=== PATIENT | female | born 1960 | race Caucasian/White ===

== ENCOUNTER 2017-03-01 13:28 | Emergency (ER) | payer OTHER ==
[~2017-03-01] VITALS: Ht 157.5 cm; Wt 63.5 kg
[~2017-03-01 13:28] MED LIST: ALBU90OI INH; AMOCLA875 PO; Bactrim Ds Tab1 EACH PO; CEPH500 PO; CYCL10 PO; HYDMOR2 PO; HYDR1TAB94 PO; LEVFLO500 PO; LEVSOD50 PO; METCAR500 PO; METPRE4DP PO; Mucinex1200 MG PO; Norco 10-325 T1 EACH PO; Norco 5-325 Ta1 EACH PO; OXYACEL PO; OXYC1TAB11 PO; PRODEXEL PO; Pyridium100 MG PO; RXCYCL10 PO; RXTRAM50 PO; TRAM50 PO; Zithromax250 MG PO; [UNRECOGNIZED DRUG - OTHER] PO
[2017-03-01] MEDS ORDERED: FLUT1DIS5 INH (14:49)
[2017-03-01] MEDS ORDERED: Q-Tussin100 MG/5 M PO (14:49)
[2017-03-01] MEDS ORDERED: Zithromax250 MG PO (14:49)
[2017-12-09] MEDS ORDERED: Keflex500 MG PO (13:31)
[2017-12-09] MEDS ORDERED: Norco 5-325 Ta1 EACH PO (13:31)
== END 2017-03-01 14:58 | disposition home or self-care (01) ==
LOC: ER 13:28
DX: J44.1 Chronic obstructive pulmonary disease with (acute) exacerbation (principal); Z88.5 Allergy status to narcotic agent; Z88.8 Allergy status to other drugs, medicaments and biological substances; E11.9 Type 2 diabetes mellitus without complications; Z87.891 Personal history of nicotine dependence
CPT/HCPCS: 71046; 96372; 99283; J1885

== ENCOUNTER 2017-05-03 19:02 | Emergency (ER) | payer OTHER ==
[~2017-05-03] VITALS: Ht 157.5 cm; Wt 61.2 kg
[~2017-05-03 19:02] MED LIST changes: +FLUT1DIS5 INH; +Q-Tussin100 MG/5 M PO
[2017-05-03 19:46] LABS: Source, Urine Clean Catch
[2017-05-03 19:49] LABS: Appearance, Urine Hazy (Clear); Bilirubin, Urine Neg (Neg); Blood, Urine 3+ (Neg); Color, Urine Yellow (P-Yellow); Glucose Qualitative, Urine Neg (Neg); Ketones, Urine Neg (Neg); Leukocyte Esterase, Urine 3+ (Neg); Nitrite, Urine Neg (Neg); Protein, Urine 2+ (Neg); Urobilinogen, Urine 2+ (Normal)
[2017-05-03 19:49] LABS: BASOPHILS ABSOLUTE AUTO 0.02 K/mm3 (0.00-0.23); BASOPHILS PERCENT AUTO 0 % (0-2); EOSINOPHILS ABSOLUTE AUTO 0.19 K/mm3 (0.00-0.68); EOSINOPHILS PERCENT AUTO 3 % (0-6); Hematocrit 31.9 % (33.0-51.0); Hemoglobin 10.4 g/dL (11.5-16.0); IMMATURE GRAN ABSOLUTE AUTO 0.02 K/mm3 (0.00-0.10); IMMATURE GRAN PERCENT AUTO 0 % (0-1); LYMPHOCYTES PERCENT AUTO 14 % (21-46); MONOCYTES ABSOLUTE AUTO 0.67 K/mm3 (0.16-1.47); MONOCYTES PERCENT AUTO 12 % (4-13); Mean Corpuscular HGB 29.1 pg (26.0-34.0); Mean Corpuscular HGB Conc 32.6 g/dL (31.5-36.5); Mean Corpuscular Volume 89 fL (80-100); Mean Platelet Volume 10.6 fL (9.1-12.4); NEUTROPHILS ABSOLUTE AUTO 3.86 K/mm3 (1.96-9.15); NEUTROPHILS PERCENT AUTO 69 % (41-73); Platelet Count 256 K/mm3 (150-400); RDW Coefficient Variation 12.9 % (11.7-14.2); RDW Standard Deviation 42.7 fL (35.1-46.3); Red Blood Cell Count 3.58 M/mm3 (3.80-5.20); White Blood Cell Count 5.56 K/mm3 (4.00-11.30)
[2017-05-03 20:04] LABS: Bacteria Mod /hpf; Squamous Epithelial Cells Rare /hpf (Few); White Blood Cells, Urine TNTC /hpf (0-5)
[2017-05-03 20:12] LABS: Albumin, Blood 3.2 g/dL (3.4-5.0); Albumin/Globulin Ratio 0.7 (0.8-1.8); Bilirubin, Total 0.4 mg/dL (0.1-1.0); Bun/Creatinine Ratio 22.2 (12.0-20.0); Calcium, Blood 9.4 mg/dL (8.5-10.1); Creatinine, Blood 1.26 mg/dL (0.40-1.00); Globulin, Blood 4.5 g/dL (2.2-4.0); Potassium, Blood 3.4 mmol/L (3.5-5.5); Total Protein, Blood 7.7 g/dL (6.4-8.2)
[2017-05-03] MEDS ORDERED: CEFP200 PO (20:47)
[2017-05-03] MEDS ORDERED: Norco 5-325 Ta1 EACH PO (20:47)
[2017-12-09] MEDS ORDERED: Keflex500 MG PO (13:31)
[2017-12-09] MEDS ORDERED: Norco 5-325 Ta1 EACH PO (13:31)
== END 2017-05-03 21:10 | disposition home or self-care (01) ==
LOC: ER 19:02
PROVIDERS: Emergency Medicine
DX: N12 Tubulo-interstitial nephritis, not specified as acute or chronic (principal); N28.9 Disorder of kidney and ureter, unspecified; E11.9 Type 2 diabetes mellitus without complications; R79.89 Other specified abnormal findings of blood chemistry; J45.909 Unspecified asthma, uncomplicated; E03.9 Hypothyroidism, unspecified; Z87.891 Personal history of nicotine dependence
CPT/HCPCS: 36415; 71046; 80053; 81001; 83690; 85025; 87077; 87086; 87186; 93005; 93010; 99283

== ENCOUNTER 2017-05-07 18:31 | Emergency (ER) | payer OTHER ==
[~2017-05-07] VITALS: Ht 154.9 cm; Wt 49.0 kg
[~2017-05-07 18:31] MED LIST changes: +CEFP200 PO
[2017-05-07 19:29] LABS: BASOPHILS ABSOLUTE AUTO 0.05 K/mm3 (0.00-0.23); BASOPHILS PERCENT AUTO 1 % (0-2); EOSINOPHILS ABSOLUTE AUTO 0.18 K/mm3 (0.00-0.68); EOSINOPHILS PERCENT AUTO 2 % (0-6); Hematocrit 35.5 % (33.0-51.0); Hemoglobin 11.3 g/dL (11.5-16.0); Mean Corpuscular HGB 28.8 pg (26.0-34.0); Mean Corpuscular HGB Conc 31.8 g/dL (31.5-36.5); Mean Corpuscular Volume 91 fL (80-100); Mean Platelet Volume 10.5 fL (9.1-12.4); Platelet Count 298 K/mm3 (150-400); RDW Coefficient Variation 13.5 % (11.7-14.2); RDW Standard Deviation 44.9 fL (35.1-46.3); Red Blood Cell Count 3.92 M/mm3 (3.80-5.20); White Blood Cell Count 8.47 K/mm3 (4.00-11.30)
[2017-05-07 19:42] LABS: IMMATURE GRAN ABSOLUTE AUTO 0.03 K/mm3 (0.00-0.10); IMMATURE GRAN PERCENT AUTO 0 % (0-1); LYMPHOCYTES ABSOLUTE AUTO 4.79 K/mm3 (0.84-5.20); LYMPHOCYTES PERCENT AUTO 57 % (21-46); MONOCYTES ABSOLUTE AUTO 0.58 K/mm3 (0.16-1.47); MONOCYTES PERCENT AUTO 7 % (4-13); NEUTROPHILS ABSOLUTE AUTO 2.84 K/mm3 (1.96-9.15); NEUTROPHILS PERCENT AUTO 34 % (41-73)
[2017-05-07 19:49] LABS: Alanine Aminotransfer (ALT/SGP 882 U/L (12-78); Albumin, Blood 2.9 g/dL (3.4-5.0); Albumin/Globulin Ratio 0.7 (0.8-1.8); Alk Phos 332 U/L (50-136); Anion Gap 9 mmol/L (6-16); Aspartate Aminotrans (AST/SGOT 580 U/L (12-37); Bilirubin, Total 0.4 mg/dL (0.1-1.0); Blood Urea Nitrogen 14 mg/dL (8-24); Bun/Creatinine Ratio 16.2 (12.0-20.0); CO2, Blood 23 mmol/L (21-32); Calcium, Blood 8.4 mg/dL (8.5-10.1); Chloride, Blood 108 mmol/L (98-108); Creatinine, Blood 0.87 mg/dL (0.40-1.00); Globulin, Blood 4.4 g/dL (2.2-4.0); Glomerular Filtration Rate >60 (60-); Glucose, Blood 98 mg/dL (70-99); Potassium, Blood 3.5 mmol/L (3.5-5.5); Sodium, Blood 140 mmol/L (136-145); Total Protein, Blood 7.3 g/dL (6.4-8.2)
[2017-05-07 20:50] LABS: Source, Urine Clean Catch
[2017-05-07 20:53] LABS: Appearance, Urine Hazy (Clear); Bilirubin, Urine Neg (Neg); Blood, Urine 2+ (Neg); Color, Urine Yellow (P-Yellow); Glucose Qualitative, Urine Neg (Neg); Ketones, Urine Neg (Neg); Leukocyte Esterase, Urine 3+ (Neg); Nitrite, Urine Pos (Neg); Protein, Urine 1+ (Neg); Specific Gravity, Urine 1.015 (1.003-1.022); Urobilinogen, Urine 1+ (Normal)
[2017-05-07 21:06] LABS: Bacteria Many /hpf; White Blood Cells, Urine TNTC /hpf (0-5)
[2017-05-07 21:07] LABS: Red Blood Cells, Urine 0-2 /hpf (0-2); Squamous Epithelial Cells Rare /hpf (Few)
[2017-12-09] MEDS ORDERED: Keflex500 MG PO (13:31)
[2017-12-09] MEDS ORDERED: Norco 5-325 Ta1 EACH PO (13:31)
== END 2017-05-07 22:00 | disposition left against medical advice (07) ==
LOC: ER 18:31
PROVIDERS: Emergency Medicine
DX: Z53.21 Procedure and treatment not carried out due to patient leaving prior to being seen by health care provider (principal)
CPT/HCPCS: 36415; 71046; 80053; 81001; 85025; 87077; 87086; 87186; 99283

== ENCOUNTER 2017-08-02 13:20 | Emergency (ER) | payer OTHER ==
[~2017-08-02] VITALS: Ht 157.5 cm; Wt 56.7 kg
[2017-08-02] MEDS ORDERED: Keflex500 MG PO (14:01)
== END 2017-08-02 14:11 | disposition home or self-care (01) ==
LOC: ER 13:20
DX: S90.31XA Contusion of right foot, initial encounter (principal); T22.031A Burn of unspecified degree of right upper arm, initial encounter; T31.0 Burns involving less than 10% of body surface; W17.2XXA Fall into hole, initial encounter; Z88.5 Allergy status to narcotic agent; Z88.8 Allergy status to other drugs, medicaments and biological substances; Z79.899 Other long term (current) drug therapy; J45.909 Unspecified asthma, uncomplicated; E11.9 Type 2 diabetes mellitus without complications; Z87.891 Personal history of nicotine dependence
CPT/HCPCS: 73630; 99283

== ENCOUNTER 2017-08-31 22:32 | Emergency (ER) | payer OTHER ==
[~2017-08-31] VITALS: Ht 157.5 cm; Wt 59.0 kg
[~2017-08-31 22:32] MED LIST changes: +Keflex500 MG PO
[2017-09-01] MEDS ORDERED: SERT25 (01:57)
[2017-09-01] MEDS ORDERED: Zovirax800 MG PO (02:43)
[2017-09-01] MEDS ORDERED: Percocet 10-321 EACH PO (02:43)
== END 2017-09-01 03:03 | disposition home or self-care (01) ==
LOC: ER 22:32
DX: B02.9 Zoster without complications (principal); E11.9 Type 2 diabetes mellitus without complications; Z88.5 Allergy status to narcotic agent; Z88.8 Allergy status to other drugs, medicaments and biological substances; Z79.899 Other long term (current) drug therapy; Z87.891 Personal history of nicotine dependence
CPT/HCPCS: 99282

== ENCOUNTER 2018-03-16 10:04 | Emergency (ER) | payer SELFPAY ==
[~2018-03-16] VITALS: Ht 157.5 cm; Wt 59.0 kg
[~2018-03-16 10:04] MED LIST changes: +Percocet 10-321 EACH PO; +SERT25; +Zovirax800 MG PO
== END 2018-03-16 11:09 | disposition home or self-care (01) ==
LOC: ER 10:04
DX: S93.402A Sprain of unspecified ligament of left ankle, initial encounter (principal); E11.9 Type 2 diabetes mellitus without complications; Z88.5 Allergy status to narcotic agent; Z88.8 Allergy status to other drugs, medicaments and biological substances; Z87.891 Personal history of nicotine dependence; W17.89XA Other fall from one level to another, initial encounter
CPT/HCPCS: 73610; 99283-25

== ENCOUNTER 2018-05-01 14:27 | Emergency (ER) | payer MEDICAID ==
[~2018-05-01] VITALS: Ht 157.5 cm; Wt 61.2 kg
[2018-05-01] MEDS ORDERED: Cyclobenzaprine5 MG PO (15:20)
[2018-05-01] MEDS ORDERED: Voltaren100 GM TOP (15:20)
== END 2018-05-01 15:29 | disposition home or self-care (01) ==
LOC: ER 14:27
DX: S16.1XXA Strain of muscle, fascia and tendon at neck level, initial encounter (principal); E11.9 Type 2 diabetes mellitus without complications; J45.909 Unspecified asthma, uncomplicated; Z88.5 Allergy status to narcotic agent; Z88.8 Allergy status to other drugs, medicaments and biological substances; Z79.899 Other long term (current) drug therapy; Z87.891 Personal history of nicotine dependence; X58.XXXA Exposure to other specified factors, initial encounter
CPT/HCPCS: 99282

== ENCOUNTER 2018-09-08 14:39 | Emergency (ER) | payer OTHER ==
[~2018-09-08] VITALS: Ht 157.5 cm; Wt 61.2 kg
[~2018-09-08 14:39] MED LIST changes: +Cyclobenzaprine5 MG PO; +Voltaren100 GM TOP
[2018-09-08] MEDS ORDERED: KETO10 PO (15:38)
== END 2018-09-08 15:43 | disposition home or self-care (01) ==
LOC: ER 14:39
DX: S46.011A Strain of muscle(s) and tendon(s) of the rotator cuff of right shoulder, initial encounter (principal); V49.9XXA Car occupant (driver) (passenger) injured in unspecified traffic accident, initial encounter; Z88.5 Allergy status to narcotic agent; Z88.8 Allergy status to other drugs, medicaments and biological substances; E11.9 Type 2 diabetes mellitus without complications; J45.909 Unspecified asthma, uncomplicated; Z87.891 Personal history of nicotine dependence
CPT/HCPCS: 73030; 99284-25

== ENCOUNTER 2019-03-03 13:43 | Emergency (ER) | payer OTHER ==
[~2019-03-03] VITALS: Ht 157.5 cm; Wt 60.8 kg
[~2019-03-03 13:43] MED LIST changes: +KETO10 PO
[2019-03-03] MEDS ORDERED: CYCL10 PO (15:15)
== END 2019-03-03 15:21 | disposition home or self-care (01) ==
LOC: ER 13:43
DX: S09.90XA Unspecified injury of head, initial encounter (principal); S80.01XA Contusion of right knee, initial encounter; S40.012A Contusion of left shoulder, initial encounter; E11.319 Type 2 diabetes mellitus with unspecified diabetic retinopathy without macular edema; Z88.5 Allergy status to narcotic agent; Z88.8 Allergy status to other drugs, medicaments and biological substances; Z87.891 Personal history of nicotine dependence; W01.0XXA Fall on same level from slipping, tripping and stumbling without subsequent striking against object, initial encounter
CPT/HCPCS: 73030; 73562-RT; 99283-25

== ENCOUNTER 2019-03-18 22:14 | Observation (INO) | payer OTHER ==
[~2019-03-18] VITALS: Ht 157.5 cm; Wt 58.8 kg
[2019-03-18] MEDS ORDERED: AMOCLA875 PO (22:42)
[2019-03-19 01:14] LABS: BASOPHILS ABSOLUTE AUTO 0.04 K/mm3 (0.00-0.23); BASOPHILS PERCENT AUTO 0 % (0-2); EOSINOPHILS ABSOLUTE AUTO 0.08 K/mm3 (0.00-0.68); EOSINOPHILS PERCENT AUTO 1 % (0-6); Hematocrit 38.7 % (33.0-51.0); Hemoglobin 12.2 g/dL (11.5-16.0); IMMATURE GRAN ABSOLUTE AUTO 0.03 K/mm3 (0.00-0.10); IMMATURE GRAN PERCENT AUTO 0 % (0-1); LYMPHOCYTES ABSOLUTE AUTO 2.93 K/mm3 (0.84-5.20); LYMPHOCYTES PERCENT AUTO 33 % (21-46); MONOCYTES ABSOLUTE AUTO 0.74 K/mm3 (0.16-1.47); MONOCYTES PERCENT AUTO 8 % (4-13); Mean Corpuscular HGB 28.7 pg (26.0-34.0); Mean Corpuscular HGB Conc 31.5 g/dL (31.5-36.5); Mean Corpuscular Volume 91 fL (80-100); NEUTROPHILS ABSOLUTE AUTO 5.12 K/mm3 (1.96-9.15); NEUTROPHILS PERCENT AUTO 57 % (41-73); Platelet Count 362 K/mm3 (150-400); RDW Coefficient Variation 13.5 % (11.7-14.2); Red Blood Cell Count 4.25 M/mm3 (3.80-5.20); White Blood Cell Count 8.94 K/mm3 (4.00-11.30)
[2019-03-19 01:31] LABS: Alanine Aminotransfer (ALT/SGP 21 U/L (12-78); Albumin, Blood 4.1 g/dL (3.4-5.0); Albumin/Globulin Ratio 0.9 (0.8-1.8); Alk Phos 108 U/L (50-136); Anion Gap 6 mmol/L (6-16); Aspartate Aminotrans (AST/SGOT 22 U/L (12-37); Bilirubin, Total 0.2 mg/dL (0.1-1.0); Blood Urea Nitrogen 25 mg/dL (8-24); Bun/Creatinine Ratio 32.4 (12.0-20.0); CO2, Blood 26 mmol/L (21-32); Chloride, Blood 109 mmol/L (98-108); Creatinine, Blood 0.77 mg/dL (0.40-1.00); Globulin, Blood 4.4 g/dL (2.2-4.0); Glomerular Filtration Rate >60 (60-); Glucose, Blood 85 mg/dL (70-99); Potassium, Blood 3.5 mmol/L (3.5-5.5); Sodium, Blood 141 mmol/L (136-145); Total Protein, Blood 8.5 g/dL (6.4-8.2)
--- NOTE | 2019-03-19 03:25 | NUR ---
0153 REPORT RECIEVED FROM ER NURSE CHIQUI. 0201 PT TO UNIT VIA WHEELCHAIR. TRANSFERRED TO UNIT BED BY AMBULATION. STEADY GAIT. INTRODUCTED TO STAFF AND ORIENTED TO ROOM. PT A/O X4. REPORTS OF PAIN IN R HAND MIDDLE FINGER. PICTURE TAKEN OF FINGER. SEE IN PT FOLDER. MEDICATED WITH FENTNYL IV. WILL CONTINUE TO MONITOR.
[2019-03-19 04:42] LABS: Hematocrit 35.1 % (33.0-51.0); Hemoglobin 11.2 g/dL (11.5-16.0); Mean Corpuscular HGB Conc 31.9 g/dL (31.5-36.5); Mean Corpuscular Volume 91 fL (80-100); Mean Platelet Volume 10.1 fL (9.1-12.4); Platelet Count 334 K/mm3 (150-400); RDW Coefficient Variation 13.5 % (11.7-14.2); Red Blood Cell Count 3.86 M/mm3 (3.80-5.20); White Blood Cell Count 7.85 K/mm3 (4.00-11.30)
[2019-03-19 05:00] LABS: Alanine Aminotransfer (ALT/SGP 20 U/L (12-78); Albumin, Blood 3.6 g/dL (3.4-5.0); Albumin/Globulin Ratio 0.9 (0.8-1.8); Alk Phos 97 U/L (50-136); Anion Gap 8 mmol/L (6-16); Aspartate Aminotrans (AST/SGOT 25 U/L (12-37); Bilirubin, Total 0.4 mg/dL (0.1-1.0); Blood Urea Nitrogen 22 mg/dL (8-24); Bun/Creatinine Ratio 27.6 (12.0-20.0); CO2, Blood 25 mmol/L (21-32); Calcium, Blood 8.7 mg/dL (8.5-10.1); Chloride, Blood 109 mmol/L (98-108); Globulin, Blood 3.8 g/dL (2.2-4.0); Glomerular Filtration Rate >60 (60-); Glucose, Blood 97 mg/dL (70-99); Potassium, Blood 3.6 mmol/L (3.5-5.5); Sodium, Blood 142 mmol/L (136-145); Total Protein, Blood 7.4 g/dL (6.4-8.2)
--- NOTE | 2019-03-19 07:26 | NUR ---
RIGGER APPRENTICE SUMMARY PT A/O X4. INDEPENDENT IN ROOM. COMPLAINS OF PAIN IN R HAND MIDDLE DIGIT. MEDICATED FOR PAIN PER EMAR. SLEPT WELL THROUGOUT THE NIGHT. NO ACUTE CHANGES.
--- NOTE | 2019-03-19 18:44 | NUR ---
SHIFT SUMMARY PT IS STABLE. PT HAS REQUESTED PAIN MEDICATION X2. PT WAS UNABLE TO TOLRATE MRI SCHDULED FOR THIS SHIFT AND SCAN IS BEING OREDER FOR TOMORROW [id number]. PT HAS TOLORATED FOOD WELL AND IS INDEPENTENT IN THE ROOM. DR. TELLEZ WAS CONSULTED AND ROUND THIS SHIFT ON PT. CALL LIGHT IS WITH IN REACH AND WILL COUNTINUE TO MONITOR AND REPORT TO ONCOMING SHIFT.
--- NOTE | 2019-03-20 04:37 | NUR ---
SOCIAL MEDIA DEVELOPER SUMMARY NO ACUTE CHANGES THIS SHIFT. PT AAOX4 AND INDEPENDENT IN ROOM. CONTINUES TO HAVE PAIN IN R MIDDLE FINGER, MEDICATED WITH FENTANYL 25 MCG AND TORADOL 15 MG X1. PT DENIES ANY OTHER CONCERNS. VSS, WILL CONTINUE TO MONITOR.
--- NOTE | 2019-03-20 17:27 | NUR ---
SHIFT SUMMARY PT STABLE WITH NO ACUTE CHANGES. PT HAD MRI PERFORRMED THIS SHIFT. PT WAS MEDICATED X2 FOR PAIN RELIEF. PT TOLRATED FOOD WELL. PT IS INDEPENDENT IN ROOM AND HAS CALL LIGHT WITH REACH WILL COUNTINUE TO MONITOR AND REPORT TO ONCOMING SHIFT. DR UGARTE NOFIIED THAT MRI IMPRESSION WAS COMPLETE. DR UGARTE INSTRUCTED ME TO CALL DR. TALAVERA, CALL PLACED TO THROUGH WAITING FOR RETURN CALL.
[2019-03-21 04:55] LABS: BASOPHILS ABSOLUTE AUTO 0.05 K/mm3 (0.00-0.23); BASOPHILS PERCENT AUTO 1 % (0-2); EOSINOPHILS PERCENT AUTO 1 % (0-6); Hemoglobin 11.8 g/dL (11.5-16.0); IMMATURE GRAN ABSOLUTE AUTO 0.01 K/mm3 (0.00-0.10); IMMATURE GRAN PERCENT AUTO 0 % (0-1); LYMPHOCYTES ABSOLUTE AUTO 2.46 K/mm3 (0.84-5.20); LYMPHOCYTES PERCENT AUTO 30 % (21-46); MONOCYTES ABSOLUTE AUTO 0.98 K/mm3 (0.16-1.47); MONOCYTES PERCENT AUTO 12 % (4-13); Mean Corpuscular HGB 29.3 pg (26.0-34.0); Mean Corpuscular HGB Conc 31.9 g/dL (31.5-36.5); Mean Corpuscular Volume 92 fL (80-100); Mean Platelet Volume 10.5 fL (9.1-12.4); NEUTROPHILS ABSOLUTE AUTO 4.55 K/mm3 (1.96-9.15); NEUTROPHILS PERCENT AUTO 56 % (41-73); Platelet Count 343 K/mm3 (150-400); RDW Coefficient Variation 13.3 % (11.7-14.2); RDW Standard Deviation 45.6 fL (35.1-46.3); Red Blood Cell Count 4.03 M/mm3 (3.80-5.20); White Blood Cell Count 8.15 K/mm3 (4.00-11.30)
--- NOTE | 2019-03-21 04:55 | NUR ---
CARD HAND SUMMARY PT AAOX4 AND INDEPENDENT. DR TALAVERA IN TO SEE PT AT START OF SHIFT. DR TALAVERA PLANNING ON DOING PARTIAL AMPUTATION OF R MIDDLE FINGER LATER THIS MORNING. PT EMOTIONAL AFTER FINDING OUT. PAIN HAS BEEN BETTER MANAGED TONIGHT, ONLY TREATED WITH FENTANYL X1. PT HAS BEEN NPO SINCE MIDNIGHT ASIDE FROM WATER. VSS, WILL CONTINUE TO MONITOR.
[2019-03-21 05:10] LABS: Anion Gap 6 mmol/L (6-16); Blood Urea Nitrogen 31 mg/dL (8-24); Bun/Creatinine Ratio 34.8 (12.0-20.0); CO2, Blood 28 mmol/L (21-32); Calcium, Blood 9.1 mg/dL (8.5-10.1); Chloride, Blood 108 mmol/L (98-108); Creatinine, Blood 0.89 mg/dL (0.40-1.00); Glomerular Filtration Rate >60 (60-); Glucose, Blood 110 mg/dL (70-99); Potassium, Blood 3.3 mmol/L (3.5-5.5); Sodium, Blood 142 mmol/L (136-145)
--- NOTE | 2019-03-21 12:46 | NUR ---
PATIENT WAS JUST PICKED UP AND TAKEN DOWN TO THE OR FOR SURGERY.
--- NOTE | 2019-03-21 12:59 | NUR ---
BROUGHT TO [facility] IV STARTED IN LEFT HAND 20 CALIXTO. Patient confirms NPO status and agrees with scheduled surgery. VSS
--- NOTE | 2019-03-21 15:39 | NUR ---
PATIENT RETURNED FROM THE PACU AT APPROX 1520. PATIENT TRANSFERED SELF FROM STRETCHER TO HOSPITAL BED. VITALS CHECKED. PATIENT ASKED TO EAT AND TOOK DOWN QUITE A BIT OF FOOD THAT HER FRIENDS HAD LEFT. CALLED DOWN TO O.R. TO ASK IF LIDOCAINE WAS USED IT WAS NOT MARKED OF PATIENTS EMAR. THEY SAID IT WAS NOT. WILL CHART SO.
--- NOTE | 2019-03-21 16:48 | NUR ---
SHIFT SUMMARY THE PATIENT RETURNED FROM SURGERY MUCH MORE CHEERFUL AND PLEASANT THAN SHE LEFT. SHE DENIES PAIN AND DISCOMFORT AND ATE A LARGE HAMBURGER BROUGHT IN BY A FRIEND. BP HAS BEEN ELEVATED, IT APPEARS TO BE HER BASELINE, ALL OTHER VITALS STABLE AND WNL. SURGICAL DRESSING TO R HAND CDI. PATIENT INDEPENDENT IN ROOM, CALLS FOR STAFF ASSIST NEEDED. WILL CONTINUE TO MONITOR AND PROVIDE CARE NEEDED.
--- NOTE | 2019-03-21 18:35 | NUR ---
PATIENT REQUESTED THAT WE DISCONTINUE THE BLOOD SUGAR CHECKS, THAT HER A1C FROM HER PCP's OFFICE HAVE BEEN GREAT AND SHE NO LONGER CHECKS HER SUGARS AT HOME. HER HIGHEST CHEM BG SINCE ADMIT HAS ONLY BEEN IN THE 130's; GIANFRANCO IT WAS ONLY 113 AFTER SHE ATE A HUGE HAMBURGER. I PLACED A NOTE ON THE PATIENTS WHITE BOARD IN HOPES THE MD WILL SEE IT ON HIS/HER ROUNDS IN THE AM.
--- NOTE | 2019-03-21 22:39 | NUR ---
PT IS PLEASANT AND COOPERATIVE WITH CARE. CHATTING WITH VISITOR, PAUSED DURING REPORT. TREATED FOR PAIN IN HAND PER EMAR TO GOOD EFFECT. PT IS PRESENTLY SLEEPING AND APPEARS IN NO ACUTE DISTRESS. VSS. DRESSING TO FINGER IS C/D/I. WILL CONTINUE TO MONITOR.
--- NOTE | 2019-03-22 04:54 | NUR ---
NOC SHIFT SUMMARY PT IS PLEASANT AND COOPERATIVE WITH CARE. DRESSING TO R HAND IS C/D/I. TREATED FOR PAIN THROUGH THE NIGHT TO GOOD EFFECT. PT HAS SLEPT OFF AND ON THIS NIGHT. VSS. HAD LOW GRADE FEVER WHICH RESOLVED WITH TYLENOL. NO ACUTE EVENTS NOTED THUS FAR THIS SHIFT. PT PRESENTLY APPEARS TO BE SLEEPING WITH EVEN UNLABORED RESPIRATIONS. WILL CONTINUE TO MONITOR.
--- NOTE | 2019-03-22 07:28 | NUR ---
CALLED DR TALAVERA AT 0725 REGARDING PAIN CONTROL OF PATIENT. STATES PAIN IN R HAND IS 9/10 AND IS CRYING INCONSOLIBLY IN ROOM DESPITE MEDICATING WITH IV FENTANYL AND IV TORODOL THIS AM. AWAITING RETURN CALL.
--- NOTE | 2019-03-22 07:38 | NUR ---
DR TALAVERA RETURNED CALL AT 0735 AND STATED TO HAVE PATIENT ELEVATE R ARM AND TO TRY ADMINISTERING OXYCODONE, WHICH DR LAZO JUST ADDED TO EMAR.
--- NOTE | 2019-03-22 08:54 | NUR ---
PATIENT FELL TO SLEEP JUST AFTER 8am; MEDICATIONS BEING HELD UNTIL SHE AWAKENS DUE TO THE AMOUNT OF PAIN SHE WAS IN PRIOR TO FALLING TO SLEEP.
[2019-03-22] MEDS ORDERED: ACET325 PO (11:53)
[2019-03-22] MEDS ORDERED: AMLO5 PO (11:53)
[2019-03-22] MEDS ORDERED: OXYC5 PO (11:54)
--- NOTE | 2019-03-22 12:22 | NUR ---
DISCHARGE INSTRUCTIONS REVIEWED WITH THE PATIENT. WRITTEN INSTRUCTIONS GIVEN A REFERENCE. EDUCATIONAL MATERIAL GIVEN. RX SENT TO [facility] PER PATIENT REQUEST. HARD SCRIPT FOR OXYCODONE HANDED TO PATIENT. ALL QUESTIONS ANSWERED. PATIENT LEFT WITH FAMILY/FRIENDS AT 1220.
== END 2019-03-22 12:20 | disposition home or self-care (01) ==
LOC: ER 22:14 → MEDS 22:15
PROVIDERS: Hospitalist; Orthopaedic Surgery; Physician Assistant; ADMIT Internal Medicine
PROC: 0X6Q0Z3 Detachment at Right Middle Finger, Low, Open Approach (ICD-10-PCS; principal; 2019-03-21 15:15)
DX: M86.8X4 Other osteomyelitis, hand (principal); I10 Essential (primary) hypertension; E11.9 Type 2 diabetes mellitus without complications; J45.909 Unspecified asthma, uncomplicated; Z88.5 Allergy status to narcotic agent; Z88.8 Allergy status to other drugs, medicaments and biological substances; Z87.39 Personal history of other diseases of the musculoskeletal system and connective tissue; Z87.898 Personal history of other specified conditions
CPT/HCPCS: 36415; 73140; 73223; 80048; 80053; 82947; 83605; 85025; 85027; 87040; 87071; 87075; 87077; 87186; 87205; 96365; 96366; 96374; 96375; 96376; 99284-25; A9270; A9577; G0378; J1170; J1885; J2250; J2543; J2704; J3010; J7030; J7050; J7120

== ENCOUNTER 2019-03-23 14:02 | Emergency (ER) | payer OTHER ==
[~2019-03-23] VITALS: Ht 157.5 cm; Wt 60.8 kg
[~2019-03-23 14:02] MED LIST changes: +ACET325 PO; +AMLO5 PO; +OXYC5 PO
== END 2019-03-23 15:17 | disposition home or self-care (01) ==
LOC: ER 14:02
DX: Z47.81 Encounter for orthopedic aftercare following surgical amputation (principal); E11.319 Type 2 diabetes mellitus with unspecified diabetic retinopathy without macular edema; Z88.5 Allergy status to narcotic agent; Z88.8 Allergy status to other drugs, medicaments and biological substances; Z88.6 Allergy status to analgesic agent; Z79.899 Other long term (current) drug therapy; Z87.891 Personal history of nicotine dependence; Z89.021 Acquired absence of right finger(s)
CPT/HCPCS: 99282

== ENCOUNTER 2019-04-06 15:29 | Emergency (ER) | payer OTHER ==
[~2019-04-06] VITALS: Ht 157.5 cm; Wt 59.0 kg
[~2019-04-06 15:29] MED LIST changes: -AMLO5 PO; +NORVASC2.5 MG PO
[2019-04-06] MEDS ORDERED: Cleocin HCl150 MG PO (17:17)
[2019-04-07] MEDS ORDERED: ALBU90OI INH (22:56)
== END 2019-04-06 17:25 | disposition home or self-care (01) ==
LOC: ER 15:29
DX: L03.011 Cellulitis of right finger (principal); L02.511 Cutaneous abscess of right hand; E11.9 Type 2 diabetes mellitus without complications; J45.909 Unspecified asthma, uncomplicated; Z88.5 Allergy status to narcotic agent; Z88.8 Allergy status to other drugs, medicaments and biological substances; Z88.6 Allergy status to analgesic agent; Z79.899 Other long term (current) drug therapy; Z87.891 Personal history of nicotine dependence
CPT/HCPCS: 73120; 99283-25

== ENCOUNTER 2019-04-07 16:38 | Observation (INO) | payer OTHER ==
[~2019-04-07] VITALS: Ht 157.5 cm; Wt 58.9 kg
[~2019-04-07 16:38] MED LIST changes: +Cleocin HCl150 MG PO
[2019-04-07 17:44] LABS: BASOPHILS ABSOLUTE AUTO 0.03 K/mm3 (0.00-0.23); BASOPHILS PERCENT AUTO 0 % (0-2); EOSINOPHILS ABSOLUTE AUTO 0.08 K/mm3 (0.00-0.68); EOSINOPHILS PERCENT AUTO 1 % (0-6); Hematocrit 39.4 % (33.0-51.0); Hemoglobin 12.6 g/dL (11.5-16.0); IMMATURE GRAN ABSOLUTE AUTO 0.01 K/mm3 (0.00-0.10); IMMATURE GRAN PERCENT AUTO 0 % (0-1); LYMPHOCYTES ABSOLUTE AUTO 2.53 K/mm3 (0.84-5.20); LYMPHOCYTES PERCENT AUTO 31 % (21-46); MONOCYTES ABSOLUTE AUTO 0.72 K/mm3 (0.16-1.47); MONOCYTES PERCENT AUTO 9 % (4-13); Mean Corpuscular HGB 28.8 pg (26.0-34.0); Mean Corpuscular Volume 90 fL (80-100); Mean Platelet Volume 9.8 fL (9.1-12.4); NEUTROPHILS ABSOLUTE AUTO 4.84 K/mm3 (1.96-9.15); NEUTROPHILS PERCENT AUTO 59 % (41-73); Platelet Count 377 K/mm3 (150-400); RDW Coefficient Variation 13.2 % (11.7-14.2); RDW Standard Deviation 43.5 fL (35.1-46.3); Red Blood Cell Count 4.38 M/mm3 (3.80-5.20); White Blood Cell Count 8.21 K/mm3 (4.00-11.30)
[2019-04-07 18:12] LABS: Alanine Aminotransfer (ALT/SGP 19 U/L (12-78); Albumin, Blood 3.9 g/dL (3.4-5.0); Albumin/Globulin Ratio 0.9 (0.8-1.8); Alk Phos 105 U/L (50-136); Anion Gap 6 mmol/L (6-16); Aspartate Aminotrans (AST/SGOT 18 U/L (12-37); Bilirubin, Total 0.2 mg/dL (0.1-1.0); Blood Urea Nitrogen 25 mg/dL (8-24); Bun/Creatinine Ratio 28.8 (12.0-20.0); CO2, Blood 26 mmol/L (21-32); Calcium, Blood 9.4 mg/dL (8.5-10.1); Chloride, Blood 105 mmol/L (98-108); Creatinine, Blood 0.87 mg/dL (0.40-1.00); Globulin, Blood 4.4 g/dL (2.2-4.0); Glomerular Filtration Rate >60 (60-); Glucose, Blood 108 mg/dL (70-99); Potassium, Blood 3.1 mmol/L (3.5-5.5); Sodium, Blood 137 mmol/L (136-145); Total Protein, Blood 8.3 g/dL (6.4-8.2)
[2019-04-07] MEDS ORDERED: ALBU90OI INH (22:56)
--- NOTE | 2019-04-08 04:26 | NUR ---
T/F AND SUMMARY: REPORT RECIEVED FROM [facility] AT 2144 AND PT T/F TO ROOM 209 VIA BED AT 0. SHE'S A/0X4, INDEPENDENT IN ROOM AND SPECIFIES NEEDS. PT HAD RECENT PARTIAL AMPUTATION OF R.MIDDLE FINGER 2NDARY TO OSTEOMYELITIS WHICH HAS SINCE BECOME SWOLLEN, HOT, RED AND HAS DEVELOPED PUS POCKETS TO THE DORSAL AND MEDIAL SX WOUND SITE. DISTAL SUTURES REMAIN INTACT, NO DRAINAGE OBSERVED AND FINGER LEFT CRICKET. SHE WAS MEDICATED W/FENTANYL 50 MCG FOR TOLERABLE CONTROL OF PAIN AND HAS KPAD AND WARM COMPRESS IN PLACE FOR COMFORT. SHE'S BEEN NPO SINCE NM FOR POSSIBLE WASH OUT OR FURHTER AMPUTATION. SX CX CALLED TO 'S ANSWERING SERVICE. 18G IV INFUSING W/NS AT 75 ML/HR AND PT CAN BE SL AFTER 1L NS. SCD'S INTACT. NO ACUTE CHANGES, VSS AND AFEBRILE. SX PACKET ON CHART. WCTM AND REPORT TO DAY RN.
[2019-04-08 04:37] LABS: Hematocrit 34.2 % (33.0-51.0); Mean Corpuscular HGB 28.9 pg (26.0-34.0); Mean Corpuscular HGB Conc 32.2 g/dL (31.5-36.5); Mean Corpuscular Volume 90 fL (80-100); Mean Platelet Volume 9.9 fL (9.1-12.4); Platelet Count 333 K/mm3 (150-400); RDW Coefficient Variation 13.3 % (11.7-14.2); RDW Standard Deviation 44.1 fL (35.1-46.3)
[2019-04-08 04:56] LABS: Alanine Aminotransfer (ALT/SGP 13 U/L (12-78); Albumin, Blood 3.2 g/dL (3.4-5.0); Albumin/Globulin Ratio 0.8 (0.8-1.8); Alk Phos 93 U/L (50-136); Anion Gap 6 mmol/L (6-16); Aspartate Aminotrans (AST/SGOT 16 U/L (12-37); Bilirubin, Total 0.1 mg/dL (0.1-1.0); Blood Urea Nitrogen 28 mg/dL (8-24); CO2, Blood 28 mmol/L (21-32); Calcium, Blood 9.3 mg/dL (8.5-10.1); Chloride, Blood 110 mmol/L (98-108); Glomerular Filtration Rate >60 (60-); Glucose, Blood 95 mg/dL (70-99); Potassium, Blood 3.9 mmol/L (3.5-5.5); Sodium, Blood 144 mmol/L (136-145); Total Protein, Blood 7.2 g/dL (6.4-8.2)
--- NOTE | 2019-04-08 14:34 | NUR ---
PERMISSION THE PATIENT GAVE ME PERMISSION TO BE INVOLVED IN HER CARE DURING CLINICAL ON 04/09/2019
--- NOTE | 2019-04-08 16:40 | NUR ---
SHIFT SUMMARY PT HAS DONE WELL TODAY. WAS NPO UNTIL ORTHO CONSULTED. ORTHO HOPEFUL PT WILL NOT NEED SURGERY. IV ABX STARTED AFTER CULTERES TAKEN. PT UP IND IN ROOM. TOLERATING DIET WELL. PAIN APPEARS TO BE WELL MANAGED.
[2019-04-09 02:11] LABS: BASOPHILS ABSOLUTE AUTO 0.05 K/mm3 (0.00-0.23); BASOPHILS PERCENT AUTO 1 % (0-2); EOSINOPHILS ABSOLUTE AUTO 0.11 K/mm3 (0.00-0.68); EOSINOPHILS PERCENT AUTO 2 % (0-6); Hematocrit 38.1 % (33.0-51.0); Hemoglobin 12.1 g/dL (11.5-16.0); IMMATURE GRAN ABSOLUTE AUTO 0.02 K/mm3 (0.00-0.10); IMMATURE GRAN PERCENT AUTO 0 % (0-1); LYMPHOCYTES ABSOLUTE AUTO 2.31 K/mm3 (0.84-5.20); LYMPHOCYTES PERCENT AUTO 40 % (21-46); MONOCYTES ABSOLUTE AUTO 0.55 K/mm3 (0.16-1.47); MONOCYTES PERCENT AUTO 10 % (4-13); Mean Corpuscular HGB Conc 31.8 g/dL (31.5-36.5); Mean Corpuscular Volume 91 fL (80-100); Mean Platelet Volume 9.9 fL (9.1-12.4); NEUTROPHILS ABSOLUTE AUTO 2.76 K/mm3 (1.96-9.15); NEUTROPHILS PERCENT AUTO 48 % (41-73); Platelet Count 348 K/mm3 (150-400); RDW Coefficient Variation 13.4 % (11.7-14.2); Red Blood Cell Count 4.17 M/mm3 (3.80-5.20)
[2019-04-09 02:19] LABS: Anion Gap 4 mmol/L (6-16); Blood Urea Nitrogen 24 mg/dL (8-24); CO2, Blood 30 mmol/L (21-32); Calcium, Blood 9.3 mg/dL (8.5-10.1); Chloride, Blood 107 mmol/L (98-108); Creatinine, Blood 0.83 mg/dL (0.40-1.00); Glomerular Filtration Rate >60 (60-); Glucose, Blood 99 mg/dL (70-99); Potassium, Blood 3.8 mmol/L (3.5-5.5); Sodium, Blood 141 mmol/L (136-145); Vancomycin, Trough 11.1 ug/mL (5.0-10.0)
--- NOTE | 2019-04-09 04:31 | NUR ---
SHIFT SUMMARY PT APPEARS TO HAVE RESTED WELL IN BED T/O SHIFT W/OUT ANY ACUTE CHANGES. IS A/OX4 WITH VSS. SUTURES TO RIGHT MIDDLE FINGER C/D/I WITHOUT ANY DRAINAGE. PAIN MANAGED PER EMAR, HEAT THERAPY, AND REPOSITIONING. ABX AND IVF ADMINISTERED PER ORDERS. TOLERATING REGULAR DIET, DENIES ANY N/V. IND IN ROOM. IS CURRENTLY RESTING IN BED WITH CALL LIGHT IN REACH. WILL CONTINUE TO MONITOR AND GIVE REPORT TO ONCOMING RN.
--- NOTE | 2019-04-09 08:00 | NUR ---
PT EATING BREAKFAST, R FINGER APPEARS SWOLLEN, SUTURES INTACT, NO DRAINAGE NOTED, REPORTS PAIN IS TOLERABLE AT THIS TIME.
--- NOTE | 2019-04-09 17:29 | NUR ---
SUMMARY CONTINUES TO HAVE SOME SWELLING ON R MIDDLE FINGER, SUTURES INTACT, NO DRAINAGE NOTED, PT HAS NOT REQUESTED ANY PAIN MEDS THIS SHIFT, HAS BEEN USING ICE PACK INTERMITTENTLY ON FINGER AND ELEVATION FOR COMFORT, STATES ICE PACK IS HELPING WITH THE PAIN, PT IS AWARE SHE HAS PAIN MEDS AVAILABLE AND HAS BEEN OFFERED BUT HAS DENIED ANY NEED FOR IT TODAY, NPO AFTER MN FOR POSSIBLE I&D VS AMPUTATION TOMORROW, PT AWARE OF PLAN, NO ACUTE CHANGES THIS SHIFT.
[2019-04-10 02:44] LABS: Vancomycin, Trough 15.5 ug/mL (5.0-10.0)
--- NOTE | 2019-04-10 07:05 | NUR ---
PT VSS T/O NIGHT. PT MED FOR PAIN X1 W/REP RELIEF. ELEVATION ENCOURAGED. NO DRNG NOTED FROM WOUND. PT NPO POST MIDNIGHT FOR POSS OR TODAY. PT INDEP IN ROOM IS USING CALL LIGHT FOR ASSISTANCE, REP GIVEN TO DAY RN.
[2019-04-10] MEDS ORDERED: HYDR1TAB94 PO (12:37)
[2019-04-10] MEDS ORDERED: Bactrim Ds Tab1 EACH PO (12:38)
[2019-04-10] MEDS ORDERED: CULTURELLE1 EACH PO (12:39)
--- NOTE | 2019-04-10 13:55 | NUR ---
DC'D HOME, ME INSTRUCTIONS GIVEN VERBALIZED UNDERSTANDING.
== END 2019-04-10 13:25 | disposition home or self-care (01) ==
LOC: ER 16:38 → SURS 16:39
PROVIDERS: Internal Medicine; Physician Assistant; ADMIT Internal Medicine
DX: L03.011 Cellulitis of right finger (principal); M86.8X4 Other osteomyelitis, hand; B95.61 Methicillin susceptible Staphylococcus aureus infection as the cause of diseases classified elsewhere; E11.9 Type 2 diabetes mellitus without complications; I10 Essential (primary) hypertension; F41.9 Anxiety disorder, unspecified; Z89.021 Acquired absence of right finger(s); J45.909 Unspecified asthma, uncomplicated; Z88.5 Allergy status to narcotic agent; Z88.6 Allergy status to analgesic agent; Z88.8 Allergy status to other drugs, medicaments and biological substances
CPT/HCPCS: 36415; 73140; 80048; 80053; 80202; 83605; 85025; 85027; 85651; 86140; 87040; 87081; 96361; 96365; 96366; 96374; 96375; 96376; 99284-25; A9270-GY; G0378; J3010; J3370; J7030

== ENCOUNTER → 2019-10-27 | Outpatient (CLI) | payer OTHER ==
[~2019-10-27] MED LIST changes: +CULTURELLE1 EACH PO
== END ==
LOC: LAB SHORT 15:20 → LAB EV 15:20
DX: N39.0 Urinary tract infection, site not specified (principal)
CPT/HCPCS: 87077; 87086; 87186

== ENCOUNTER 2021-06-07 22:34 | Emergency (ER) | payer OTHER ==
[~2021-06-07] VITALS: Ht 157.5 cm; Wt 65.3 kg
[2021-06-08 00:23] LABS: Source, Urine Clean Catch
[2021-06-08 00:25] LABS: Bilirubin, Urine Neg (Neg); Blood, Urine 3+ (Neg); Glucose Qualitative, Urine Neg (Neg); Ketones, Urine 2+ (Neg); Leukocyte Esterase, Urine 2+ (Neg); Nitrite, Urine Neg (Neg); Protein, Urine 3+ (Neg); Specific Gravity, Urine 1.025 (1.003-1.022); Urobilinogen, Urine NORM (Normal)
[2021-06-08 00:35] LABS: Appearance, Urine Hazy (Clear); Color, Urine Yellow (P-Yellow); Red Blood Cells, Urine 0-2 /hpf (0-2)
[2021-06-08 00:36] LABS: Bacteria Many /hpf; Squamous Epithelial Cells Rare /hpf (Few)
[2021-06-08 00:47] LABS: BASOPHILS ABSOLUTE AUTO 0.04 K/mm3 (0.00-0.23); BASOPHILS PERCENT AUTO 0 % (0-2); EOSINOPHILS ABSOLUTE AUTO 0.07 K/mm3 (0.00-0.68); EOSINOPHILS PERCENT AUTO 1 % (0-6); Hematocrit 39.6 % (33.0-51.0); Hemoglobin 12.6 g/dL (11.5-16.0); IMMATURE GRAN ABSOLUTE AUTO 0.03 K/mm3 (0.00-0.10); IMMATURE GRAN PERCENT AUTO 0 % (0-1); LYMPHOCYTES ABSOLUTE AUTO 1.85 K/mm3 (0.84-5.20); LYMPHOCYTES PERCENT AUTO 19 % (21-46); MONOCYTES PERCENT AUTO 9 % (4-13); Mean Corpuscular HGB Conc 31.8 g/dL (31.5-36.5); Mean Corpuscular Volume 91 fL (80-100); Mean Platelet Volume 10.1 fL (9.1-12.4); NEUTROPHILS ABSOLUTE AUTO 6.76 K/mm3 (1.96-9.15); NEUTROPHILS PERCENT AUTO 70 % (41-73); Platelet Count 339 K/mm3 (150-400); RDW Coefficient Variation 13.5 % (11.7-14.2); RDW Standard Deviation 45.5 fL (35.1-46.3); Red Blood Cell Count 4.35 M/mm3 (3.80-5.20); White Blood Cell Count 9.65 K/mm3 (4.00-11.30)
[2021-06-08 01:05] LABS: Albumin, Blood 4.7 g/dL (3.4-5.0); Albumin/Globulin Ratio 1.1 (0.8-1.8); Bilirubin, Total 0.6 mg/dL (0.1-1.0); Bun/Creatinine Ratio 32.9 (12.0-20.0); Calcium, Blood 9.5 mg/dL (8.5-10.1); Creatinine, Blood 1.52 mg/dL (0.40-1.00); Globulin, Blood 4.4 g/dL (2.2-4.0); Potassium, Blood 3.4 mmol/L (3.5-5.5); Total Protein, Blood 9.1 g/dL (6.4-8.2)
[2021-06-08 02:01] LABS: Influenza A, PCR NEGATIVE (NEGATIVE); Influenza B, PCR NEGATIVE (NEGATIVE); Resp Syncytial Virus, PCR NEGATIVE (NEGATIVE); SARS-Cov-2 (COVID-19) PCR, MMC NEGATIVE (NEGATIVE)
[2021-06-08] MEDS ORDERED: Flagyl500 MG PO (02:55)
[2021-06-08] MEDS ORDERED: Bactrim Ds Tab1 EACH PO (02:55)
== END 2021-06-08 04:26 | disposition home or self-care (01) ==
LOC: ER 22:34
PROVIDERS: Emergency Medicine; Physician Assistant
DX: K57.32 Diverticulitis of large intestine without perforation or abscess without bleeding (principal); K57.30 Diverticulosis of large intestine without perforation or abscess without bleeding; Z20.822 Contact with and (suspected) exposure to COVID-19; J44.9 Chronic obstructive pulmonary disease, unspecified; E11.9 Type 2 diabetes mellitus without complications; I10 Essential (primary) hypertension; Z87.891 Personal history of nicotine dependence; Z88.5 Allergy status to narcotic agent; Z88.6 Allergy status to analgesic agent; Z79.899 Other long term (current) drug therapy
CPT/HCPCS: 0241U; 36415; 74177; 80053; 81001; 83690; 85025; 96374; 96375; 99284-25; J1885; J2405; J7030; Q9967

== ENCOUNTER 2021-12-29 08:13 | Day surgery (SDC) | payer OTHER ==
[~2021-12-29] VITALS: Ht 157.5 cm; Wt 61.5 kg
[~2021-12-29 08:13] MED LIST changes: +Flagyl500 MG PO
[2021-12-29] MEDS ORDERED: GABA100 (08:38)
[2021-12-29] MEDS ORDERED: OMEP20ER (08:39)
[2021-12-29] MEDS ORDERED: CELE100 (08:39)
--- NOTE | 2021-12-29 08:54 | NUR ---
12/29/21 0854 Romario Smith TETRECAINE AT 0839 INTO RIGHT EYE PLDEGET AT 0840 INTO RIGHT EYE
[2021-12-29] MEDS ORDERED: OLAN10 (08:59)
== END 2021-12-29 10:07 | disposition home or self-care (01) ==
LOC: ORSCSDS 08:13
PROVIDERS: Ophthalmology
PROC: 08DJ3ZZ Extraction of Right Lens, Percutaneous Approach (ICD-10-PCS; principal; 2021-12-29 09:30)
DX: H25.11 Age-related nuclear cataract, right eye (principal); F41.9 Anxiety disorder, unspecified; F31.9 Bipolar disorder, unspecified; J44.9 Chronic obstructive pulmonary disease, unspecified; E11.9 Type 2 diabetes mellitus without complications; E78.5 Hyperlipidemia, unspecified; I10 Essential (primary) hypertension; Z79.899 Other long term (current) drug therapy
CPT/HCPCS: 82947; J2001; J2250; J3010; J3301; J7040; V2632

== ENCOUNTER 2022-01-05 06:48 | Day surgery (SDC) | payer OTHER ==
[~2022-01-05] VITALS: Ht 157.5 cm; Wt 60.4 kg
[~2022-01-05 06:48] MED LIST changes: +CELE100; +GABA100; +OLAN10; +OMEP20ER
== END 2022-01-05 08:44 | disposition home or self-care (01) ==
LOC: ORSCSDS 06:48
PROVIDERS: Ophthalmology
PROC: 08DK3ZZ Extraction of Left Lens, Percutaneous Approach (ICD-10-PCS; principal; 2022-01-05 08:00)
DX: H25.12 Age-related nuclear cataract, left eye (principal); Z96.1 Presence of intraocular lens; F41.9 Anxiety disorder, unspecified; F31.9 Bipolar disorder, unspecified; I10 Essential (primary) hypertension; E11.9 Type 2 diabetes mellitus without complications; E78.5 Hyperlipidemia, unspecified; D64.9 Anemia, unspecified; J44.9 Chronic obstructive pulmonary disease, unspecified; Z87.891 Personal history of nicotine dependence; Z79.899 Other long term (current) drug therapy
CPT/HCPCS: 82947; J2001; J2250; J3010; J3301; J7040; V2632

== ENCOUNTER 2022-03-07 20:14 | Emergency (ER) | payer OTHER ==
[~2022-03-07] VITALS: Ht 157.5 cm; Wt 61.7 kg
[2022-03-07 21:19] LABS: BASOPHILS ABSOLUTE AUTO 0.03 K/mm3 (0.00-0.23); BASOPHILS PERCENT AUTO 0 % (0-2); EOSINOPHILS ABSOLUTE AUTO 0.13 K/mm3 (0.00-0.68); EOSINOPHILS PERCENT AUTO 1 % (0-6); Hematocrit 30.1 % (33.0-51.0); Hemoglobin 10.2 g/dL (11.5-16.0); IMMATURE GRAN ABSOLUTE AUTO 0.02 K/mm3 (0.00-0.10); IMMATURE GRAN PERCENT AUTO 0 % (0-1); LYMPHOCYTES ABSOLUTE AUTO 2.28 K/mm3 (0.84-5.20); LYMPHOCYTES PERCENT AUTO 19 % (21-46); MONOCYTES ABSOLUTE AUTO 1.24 K/mm3 (0.16-1.47); MONOCYTES PERCENT AUTO 11 % (4-13); Mean Corpuscular HGB 30.1 pg (26.0-34.0); Mean Corpuscular HGB Conc 33.9 g/dL (31.5-36.5); Mean Corpuscular Volume 89 fL (80-100); Mean Platelet Volume 10.6 fL (9.1-12.4); NEUTROPHILS ABSOLUTE AUTO 8.13 K/mm3 (1.96-9.15); NEUTROPHILS PERCENT AUTO 69 % (41-73); Platelet Count 413 K/mm3 (150-400); RDW Coefficient Variation 12.8 % (11.7-14.2); Red Blood Cell Count 3.39 M/mm3 (3.80-5.20); White Blood Cell Count 11.83 K/mm3 (4.00-11.30)
[2022-03-07 21:30] LABS: Albumin, Blood 3.4 g/dL (3.4-5.0); Albumin/Globulin Ratio 0.8 (0.8-1.8); Bilirubin, Total 0.3 mg/dL (0.1-1.0); Bun/Creatinine Ratio 24.3 (12.0-20.0); Calcium, Blood 8.6 mg/dL (8.5-10.1); Creatinine, Blood 0.99 mg/dL (0.40-1.00); Globulin, Blood 4.2 g/dL (2.2-4.0); Potassium, Blood 3.4 mmol/L (3.5-5.5); Total Protein, Blood 7.6 g/dL (6.4-8.2)
== END 2022-03-08 02:12 | disposition left against medical advice (07) ==
LOC: ER 20:14
PROVIDERS: Physician Assistant
DX: R04.2 Hemoptysis (principal); Z53.21 Procedure and treatment not carried out due to patient leaving prior to being seen by health care provider
CPT/HCPCS: 36415; 71046; 80053; 85025; 93005; 93010

== ENCOUNTER → 2022-12-26 | Outpatient (CLI) | payer OTHER ==
[2022-12-26 15:46] LABS: BASOPHILS ABSOLUTE AUTO 0.03 K/mm3 (0.00-0.23); BASOPHILS PERCENT AUTO 1 % (0-2); EOSINOPHILS ABSOLUTE AUTO 0.13 K/mm3 (0.00-0.68); EOSINOPHILS PERCENT AUTO 2 % (0-6); Hematocrit 30.9 % (33.0-51.0); Hemoglobin 9.7 g/dL (11.5-16.0); IMMATURE GRAN ABSOLUTE AUTO 0.02 K/mm3 (0.00-0.10); IMMATURE GRAN PERCENT AUTO 0 % (0-1); LYMPHOCYTES ABSOLUTE AUTO 1.79 K/mm3 (0.84-5.20); LYMPHOCYTES PERCENT AUTO 30 % (21-46); MONOCYTES PERCENT AUTO 12 % (4-13); Mean Corpuscular HGB Conc 31.4 g/dL (31.5-36.5); Mean Corpuscular Volume 93 fL (80-100); Mean Platelet Volume 11.9 fL (9.1-12.4); NEUTROPHILS ABSOLUTE AUTO 3.32 K/mm3 (1.96-9.15); NEUTROPHILS PERCENT AUTO 55 % (41-73); Platelet Count 257 K/mm3 (150-400); RDW Coefficient Variation 13.2 % (11.7-14.2); RDW Standard Deviation 45.1 fL (35.1-46.3); Red Blood Cell Count 3.34 M/mm3 (3.80-5.20); White Blood Cell Count 5.99 K/mm3 (4.00-11.30)
[2022-12-26 16:04] LABS: Alanine Aminotransfer (ALT/SGP 20 U/L (12-78); Albumin, Blood 3.5 g/dL (3.4-5.0); Albumin/Globulin Ratio 0.9 (0.8-1.8); Alk Phos 90 U/L (50-136); Anion Gap 9 mmol/L (6-16); Aspartate Aminotrans (AST/SGOT 21 U/L (12-37); Bilirubin, Total 0.3 mg/dL (0.1-1.0); Blood Urea Nitrogen 25 mg/dL (8-24); CHOL/HDL RATIO 3.9; CO2, Blood 25 mmol/L (21-32); Calcium, Blood 9.1 mg/dL (8.5-10.1); Chloride, Blood 109 mmol/L (98-108); Cholesterol 178 mg/dL (50-200); Creatinine, Blood 0.89 mg/dL (0.40-1.00); Globulin, Blood 3.7 g/dL (2.2-4.0); Glomerular Filtration Rate 73 (60-); Glucose, Blood 94 mg/dL (70-99); HDL Cholesterol 46 mg/dL (>39); LDL/HDL RATIO 2.4; Low Density Lipoprotein Chol 111 mg/dL (0-110); Magnesium, Blood 2.4 mg/dL (1.6-2.4); Potassium, Blood 4.1 mmol/L (3.5-5.5); Sodium, Blood 143 mmol/L (136-145); Total Protein, Blood 7.2 g/dL (6.4-8.2); Triglycerides 104 mg/dL (30-160); Very Low Density Lipoprot Chol 20 mg/dL (6-32)
[2022-12-27 15:29] LABS: Percent Saturation 10.5 % (15.0-50.0)
== END | disposition home or self-care (01) ==
LOC: LAB SHORT 10:50
PROVIDERS: Internal Medicine
DX: Z00.00 Encounter for general adult medical examination without abnormal findings (principal); Z13.1 Encounter for screening for diabetes mellitus; Z13.220 Encounter for screening for lipoid disorders; Z13.29 Encounter for screening for other suspected endocrine disorder; E55.9 Vitamin D deficiency, unspecified; E53.8 Deficiency of other specified B group vitamins; E61.1 Iron deficiency; R25.2 Cramp and spasm
CPT/HCPCS: 80053; 80061; 82306; 82607; 82728; 82746; 83036; 83540; 83550; 83735; 84443; 85025

== ENCOUNTER → 2023-03-05 | Outpatient (CLI) | payer OTHER ==
[2023-03-05 20:02] LABS: BASOPHILS ABSOLUTE AUTO 0.04 K/mm3 (0.00-0.23); BASOPHILS PERCENT AUTO 1 % (0-2); EOSINOPHILS ABSOLUTE AUTO 0.04 K/mm3 (0.00-0.68); EOSINOPHILS PERCENT AUTO 1 % (0-6); Hematocrit 35.2 % (33.0-51.0); Hemoglobin 11.4 g/dL (11.5-16.0); IMMATURE GRAN ABSOLUTE AUTO 0.02 K/mm3 (0.00-0.10); IMMATURE GRAN PERCENT AUTO 0 % (0-1); LYMPHOCYTES ABSOLUTE AUTO 2.52 K/mm3 (0.84-5.20); LYMPHOCYTES PERCENT AUTO 30 % (21-46); MONOCYTES ABSOLUTE AUTO 0.81 K/mm3 (0.16-1.47); MONOCYTES PERCENT AUTO 10 % (4-13); Mean Corpuscular HGB 29.1 pg (26.0-34.0); Mean Corpuscular HGB Conc 32.4 g/dL (31.5-36.5); Mean Corpuscular Volume 90 fL (80-100); Mean Platelet Volume 11.3 fL (9.1-12.4); NEUTROPHILS ABSOLUTE AUTO 4.87 K/mm3 (1.96-9.15); NEUTROPHILS PERCENT AUTO 59 % (41-73); Platelet Count 360 K/mm3 (150-400); RDW Coefficient Variation 13.9 % (11.7-14.2); RDW Standard Deviation 45.8 fL (35.1-46.3); Red Blood Cell Count 3.92 M/mm3 (3.80-5.20)
[2023-03-05 20:42] LABS: Percent Saturation 8.6 % (15.0-50.0)
[2023-03-05 20:44] LABS: Thyroid Stimulating Hormone 4.27 uIU/mL (0.360-4.800)
[2023-03-07 17:12] LABS: A/G RATIO 1.4 (1.2-2.2); ALKALINE PHOSPHATASE, S 93 IU/L (44-121); ALT (SGPT) 12 IU/L (0-32); AST (SGOT) 24 IU/L (0-40); BILIRUBIN, TOTAL <0.2 mg/dL (0.0-1.2); BUN 21 mg/dL (8-27); BUN/CREATININE RATIO 22 (12-28); CALCIUM, SERUM 9.4 mg/dL (8.7-10.3); CARBON DIOXIDE, TOTAL 17 mmol/L (20-29); CHLORIDE, SERUM 103 mmol/L (96-106); CREATININE, SERUM 0.97 mg/dL (0.57-1.00); GLOBULIN, TOTAL 3.2 g/dL (1.5-4.5); GLUCOSE, SERUM 40 mg/dL (70-99); PROTEIN, TOTAL, SERUM 7.6 g/dL (6.0-8.5); SODIUM, SERUM 142 mmol/L (134-144)
== END | disposition home or self-care (01) ==
LOC: LAB SHORT 15:39 → LAB 15:39
PROVIDERS: Internal Medicine
DX: E03.9 Hypothyroidism, unspecified (principal); I10 Essential (primary) hypertension; E61.1 Iron deficiency
CPT/HCPCS: 82728; 83540; 83550; 84443; 85025

== ENCOUNTER 2023-09-18 20:35 | Emergency (ER) | payer OTHER ==
[~2023-09-18] VITALS: Ht 157.5 cm; Wt 60.8 kg
[2023-09-18 20:51] VITALS: BP 212/99
[2023-09-18 21:09] LABS: BASOPHILS ABSOLUTE AUTO 0.03 K/mm3 (0.00-0.23); BASOPHILS PERCENT AUTO 0 % (0-2); EOSINOPHILS ABSOLUTE AUTO 0.12 K/mm3 (0.00-0.68); EOSINOPHILS PERCENT AUTO 2 % (0-6); Hematocrit 34.5 % (33.0-51.0); Hemoglobin 11.4 g/dL (11.5-16.0); IMMATURE GRAN ABSOLUTE AUTO 0.01 K/mm3 (0.00-0.10); IMMATURE GRAN PERCENT AUTO 0 % (0-1); LYMPHOCYTES ABSOLUTE AUTO 2.32 K/mm3 (0.84-5.20); LYMPHOCYTES PERCENT AUTO 31 % (21-46); MONOCYTES ABSOLUTE AUTO 0.61 K/mm3 (0.16-1.47); MONOCYTES PERCENT AUTO 8 % (4-13); Mean Corpuscular HGB 29.2 pg (26.0-34.0); Mean Corpuscular Volume 89 fL (80-100); Mean Platelet Volume 9.8 fL (9.1-12.4); NEUTROPHILS ABSOLUTE AUTO 4.42 K/mm3 (1.96-9.15); NEUTROPHILS PERCENT AUTO 59 % (41-73); Platelet Count 374 K/mm3 (150-400); RDW Coefficient Variation 13.5 % (11.7-14.2); RDW Standard Deviation 43.7 fL (35.1-46.3); White Blood Cell Count 7.51 K/mm3 (4.00-11.30)
[2023-09-18 21:27] LABS: Albumin, Blood 3.6 g/dL (3.4-5.0); Albumin/Globulin Ratio 0.8 (0.8-1.8); Bilirubin, Total 0.2 mg/dL (0.1-1.0); Bun/Creatinine Ratio 26.5 (12.0-20.0); Calcium, Blood 9.6 mg/dL (8.5-10.1); Creatinine, Blood 1.02 mg/dL (0.40-1.00); Globulin, Blood 4.5 g/dL (2.2-4.0); Potassium, Blood 3.5 mmol/L (3.5-5.5); Total Protein, Blood 8.1 g/dL (6.4-8.2)
[2023-09-18] MEDS ORDERED: Ketorolac Tromethamine 30mg Vial IV ONE (22:05)
[2023-09-18] MEDS ORDERED: Amoxicillin/Clavulanate K 875 MG Tab PO ONE (22:05)
[2023-09-18] MEDS ORDERED: AMOCLA875 PO (22:11)
== END 2023-09-18 22:31 | disposition home or self-care (01) ==
LOC: ER 20:35
PROVIDERS: Physician Assistant
DX: L03.011 Cellulitis of right finger (principal); J44.9 Chronic obstructive pulmonary disease, unspecified; E11.9 Type 2 diabetes mellitus without complications; I10 Essential (primary) hypertension; Z79.899 Other long term (current) drug therapy; Z88.5 Allergy status to narcotic agent; Z88.6 Allergy status to analgesic agent; Z88.8 Allergy status to other drugs, medicaments and biological substances; Z87.891 Personal history of nicotine dependence
CPT/HCPCS: 73130; 80053; 85025; 96374; 99283-25; A9270; J1885

== ENCOUNTER 2023-10-15 13:16 | Emergency (ER) | payer OTHER ==
[~2023-10-15] VITALS: Ht 157.5 cm; Wt 60.8 kg
[~2023-10-15 13:16] MED LIST changes: +SULTRIDS PO
[2023-10-15 13:21] VITALS: BP 171/91
[2023-10-15 13:52] LABS: BASOPHILS ABSOLUTE AUTO 0.02 K/mm3 (0.00-0.23); BASOPHILS PERCENT AUTO 0 % (0-2); EOSINOPHILS ABSOLUTE AUTO 0.06 K/mm3 (0.00-0.68); EOSINOPHILS PERCENT AUTO 1 % (0-6); Hematocrit 39.7 % (33.0-51.0); Hemoglobin 13.1 g/dL (11.5-16.0); IMMATURE GRAN ABSOLUTE AUTO 0.03 K/mm3 (0.00-0.10); IMMATURE GRAN PERCENT AUTO 0 % (0-1); LYMPHOCYTES ABSOLUTE AUTO 1.08 K/mm3 (0.84-5.20); LYMPHOCYTES PERCENT AUTO 14 % (21-46); MONOCYTES ABSOLUTE AUTO 0.44 K/mm3 (0.16-1.47); MONOCYTES PERCENT AUTO 6 % (4-13); Mean Corpuscular HGB 29.8 pg (26.0-34.0); Mean Corpuscular Volume 90 fL (80-100); NEUTROPHILS ABSOLUTE AUTO 6.31 K/mm3 (1.96-9.15); NEUTROPHILS PERCENT AUTO 79 % (41-73); Platelet Count 277 K/mm3 (150-400); RDW Coefficient Variation 13.7 % (11.7-14.2); RDW Standard Deviation 45.7 fL (35.1-46.3); White Blood Cell Count 7.94 K/mm3 (4.00-11.30)
[2023-10-15] MEDS ORDERED: Piperacillin/Tazobactam Sod 4.5 GM in NS 100 ML IV ONE (14:30)
[2023-10-15] MEDS ORDERED: Vancomycin HCL 1,500 MG in NS 250 ML IV ONE (14:30)
[2023-10-15 14:56] LABS: Albumin, Blood 3.9 g/dL (3.4-5.0); Albumin/Globulin Ratio 0.9 (0.8-1.8); Bilirubin, Total 0.4 mg/dL (0.1-1.0); Bun/Creatinine Ratio 29.2 (12.0-20.0); C-REACTIVE PROTEIN, EXT RANGE 0.369 mg/dL (0.000-0.300); Calcium, Blood 8.8 mg/dL (8.5-10.1); Creatinine, Blood 0.86 mg/dL (0.40-1.00); Globulin, Blood 4.3 g/dL (2.2-4.0); Potassium, Blood 3.7 mmol/L (3.5-5.5); Total Protein, Blood 8.2 g/dL (6.4-8.2)
[2023-10-15] MEDS ORDERED: Ondansetron HCl 2 MG / ML 2ML Vial IV ONE (15:35)
[2023-10-15] MEDS ORDERED: SULTRIDS PO (15:58)
[2023-10-15] MEDS ORDERED: ACET500 PO (15:58)
[2023-10-18] MEDS ORDERED: LEVSOD75 PO (15:05)
[2023-10-18] MEDS ORDERED: Ventolin5 MG/1 ML INH (15:05)
== END 2023-10-15 17:52 | disposition home or self-care (01) ==
LOC: ER 13:16
PROVIDERS: Physician Assistant
DX: E11.69 Type 2 diabetes mellitus with other specified complication (principal); M86.9 Osteomyelitis, unspecified; J44.9 Chronic obstructive pulmonary disease, unspecified; I10 Essential (primary) hypertension; Z87.891 Personal history of nicotine dependence; Z88.5 Allergy status to narcotic agent; Z88.8 Allergy status to other drugs, medicaments and biological substances; Z88.6 Allergy status to analgesic agent; Z79.899 Other long term (current) drug therapy
CPT/HCPCS: 10060; 73140; 80053; 85025; 85651; 86140; 96365-59; 96366-59; 96367-59; 96375-59; 99283-25; J2405; J2543; J3370; J7050

== ENCOUNTER 2023-10-23 11:05 | Day surgery (SDC) | payer OTHER ==
[~2023-10-23] VITALS: Ht 157.5 cm; Wt 59.1 kg
[~2023-10-23 11:05] MED LIST changes: +ACET500 PO; +LEVSOD75 PO; +Ventolin5 MG/1 ML INH
[2023-10-23] MEDS ORDERED: CeFAZolin Sodium 2,000 MG in NS 100 ML IV SCH (14:50)
[2023-10-23] MEDS ORDERED: Lactated Ringer's 1,000 ML IV SCH (14:50)
[2023-10-23 15:29] VITALS: BP 155/72
[2023-10-23] MEDS ORDERED: Lidocaine HCl 1% 30 ML SDV ONE (15:52)
[2023-10-23] MEDS ORDERED: Bupivacaine 0.5% HCl 5 MG/ML 30MLVIAL ONE (15:52)
--- NOTE | 2023-10-23 15:53 | NUR ---
History, Chart, Medications and Allergies reviewed before start of procedure. Pre-Op teaching done. Pt verbalizes understanding. Ambulatory in Day Surgery WITH STEADY GAIT. PT BELONGINGS BAG PLACED UNDER GURNEY.
[2023-10-23] MEDS ORDERED: Midazolam HCl 1MG / ML 2ML Vial ONE (15:59)
[2023-10-23] MEDS ORDERED: FentaNYL Citrate 50 MCG/ML 2 ML Injection ONE (16:01)
[2023-10-23] MEDS ORDERED: Dexamethasone Sod Phos 10 MG/ML 1ML VIAL ONE (16:22)
[2023-10-23] MEDS ORDERED: Ondansetron HCl 2 MG / ML 2ML Vial ONE (16:22)
[2023-10-23 16:34] VITALS: BP 138/62
[2023-10-23] MEDS ORDERED: OxyCODONE HCL 5 MG TAB PO PRN (16:45)
[2023-10-23 16:55] VITALS: BP 131/75
--- NOTE | 2023-10-23 17:01 | NUR ---
Patient States Post-Procedure ride home has been arranged WITH FRIEND GER. Discharge instructions reviewed with patient. Patient verbalizes understanding. Copy given to patient to take home. Discharged via wheelchair to private car WITH GER FOR RIDE HOME. ALL BELONGINGS RETURNED TO PT.
== END 2023-10-23 22:40 | disposition home or self-care (01) ==
LOC: ORSCMMR 11:05 → ORD 13:15 → ORSCMMR 22:40
PROVIDERS: Orthopaedic Surgery
PROC: 0X6N0Z1 Detachment at Right Index Finger, High, Open Approach (ICD-10-PCS; principal; 2023-10-23 13:15)
DX: M86.141 Other acute osteomyelitis, right hand (principal); I10 Essential (primary) hypertension; J45.909 Unspecified asthma, uncomplicated; Z79.899 Other long term (current) drug therapy
CPT/HCPCS: 88305; 88311; A9270; J0690; J1100; J2250; J2405; J3010; J7120

== ENCOUNTER 2024-04-25 13:21 | Emergency (ER) | payer OTHER ==
[~2024-04-25] VITALS: Ht 157.5 cm; Wt 60.8 kg
[2024-04-25 13:58] VITALS: BP 166/85
== END 2024-04-25 14:45 | disposition home or self-care (01) ==
LOC: ER 13:21
DX: S61.012A Laceration without foreign body of left thumb without damage to nail, initial encounter (principal); J45.909 Unspecified asthma, uncomplicated; E11.9 Type 2 diabetes mellitus without complications; W26.0XXA Contact with knife, initial encounter; Z87.891 Personal history of nicotine dependence; Z79.899 Other long term (current) drug therapy; Z88.5 Allergy status to narcotic agent; Z88.6 Allergy status to analgesic agent; Z88.8 Allergy status to other drugs, medicaments and biological substances
CPT/HCPCS: 12001; 73140; 99283-25

== ENCOUNTER 2024-06-02 14:36 | Emergency (ER) | payer OTHER ==
[~2024-06-02] VITALS: Ht 157.5 cm; Wt 60.8 kg
[2024-06-02] MEDS ORDERED: Trimethoprim/Sulfamethoxazole DS Tab PO ONE (15:00)
[2024-06-02 17:48] LABS: BASOPHILS ABSOLUTE AUTO 0.03 K/mm3 (0.00-0.23); BASOPHILS PERCENT AUTO 0 % (0-2); EOSINOPHILS ABSOLUTE AUTO 0.09 K/mm3 (0.00-0.68); EOSINOPHILS PERCENT AUTO 1 % (0-6); Hematocrit 34.2 % (33.0-51.0); Hemoglobin 11.1 g/dL (11.5-16.0); IMMATURE GRAN ABSOLUTE AUTO 0.03 K/mm3 (0.00-0.10); IMMATURE GRAN PERCENT AUTO 0 % (0-1); LYMPHOCYTES ABSOLUTE AUTO 2.75 K/mm3 (0.84-5.20); LYMPHOCYTES PERCENT AUTO 29 % (21-46); MONOCYTES ABSOLUTE AUTO 1.06 K/mm3 (0.16-1.47); MONOCYTES PERCENT AUTO 11 % (4-13); Mean Corpuscular HGB 28.5 pg (26.0-34.0); Mean Corpuscular HGB Conc 32.5 g/dL (31.5-36.5); Mean Corpuscular Volume 88 fL (80-100); Mean Platelet Volume 9.8 fL (9.1-12.4); NEUTROPHILS ABSOLUTE AUTO 5.56 K/mm3 (1.96-9.15); NEUTROPHILS PERCENT AUTO 59 % (41-73); Platelet Count 435 K/mm3 (150-400); RDW Coefficient Variation 13.3 % (11.7-14.2); RDW Standard Deviation 42.9 fL (35.1-46.3); Red Blood Cell Count 3.89 M/mm3 (3.80-5.20); White Blood Cell Count 9.52 K/mm3 (4.00-11.30)
[2024-06-02 18:10] LABS: Albumin, Blood 3.9 g/dL (3.4-5.0); Albumin/Globulin Ratio 0.8 (0.8-1.8); Bilirubin, Total 0.2 mg/dL (0.1-1.0); Bun/Creatinine Ratio 26.5 (12.0-20.0); Creatinine, Blood 1.17 mg/dL (0.40-1.00); Globulin, Blood 4.6 g/dL (2.2-4.0); Potassium, Blood 3.5 mmol/L (3.5-5.5); Total Protein, Blood 8.5 g/dL (6.4-8.2)
[2024-06-02 18:45] VITALS: BP 160/93
[2024-06-02] MEDS ORDERED: SULTRIDS PO (19:48)
[2024-06-02] MEDS ORDERED: Trimethoprim/Sulfamethoxazole DS Tab PO SCH (21:00)
== END 2024-06-02 19:55 | disposition home or self-care (01) ==
LOC: ER 14:36
PROVIDERS: Student in an Organized Health Care Education/Training Program
DX: L02.611 Cutaneous abscess of right foot (principal); J44.89 Other specified chronic obstructive pulmonary disease; I10 Essential (primary) hypertension; E11.9 Type 2 diabetes mellitus without complications; Z87.891 Personal history of nicotine dependence; Z88.5 Allergy status to narcotic agent; Z88.8 Allergy status to other drugs, medicaments and biological substances; Z79.890 Hormone replacement therapy; Z79.899 Other long term (current) drug therapy
CPT/HCPCS: 10060; 73620; 80053; 85025; 96372; 99283-25; A9270

== ENCOUNTER → 2024-07-29 | Outpatient (CLI) | payer OTHER ==
[~2024-07-29] MED LIST changes: +MECL25 PO
[2024-07-29 17:56] LABS: BASOPHILS ABSOLUTE AUTO 0.03 K/mm3 (0.00-0.23); BASOPHILS PERCENT AUTO 1 % (0-2); EOSINOPHILS ABSOLUTE AUTO 0.05 K/mm3 (0.00-0.68); EOSINOPHILS PERCENT AUTO 1 % (0-6); Hematocrit 35.8 % (33.0-51.0); Hemoglobin 11.4 g/dL (11.5-16.0); IMMATURE GRAN ABSOLUTE AUTO 0.01 K/mm3 (0.00-0.10); IMMATURE GRAN PERCENT AUTO 0 % (0-1); LYMPHOCYTES ABSOLUTE AUTO 2.03 K/mm3 (0.84-5.20); LYMPHOCYTES PERCENT AUTO 35 % (21-46); MONOCYTES ABSOLUTE AUTO 0.51 K/mm3 (0.16-1.47); MONOCYTES PERCENT AUTO 9 % (4-13); Mean Corpuscular HGB 28.9 pg (26.0-34.0); Mean Corpuscular HGB Conc 31.8 g/dL (31.5-36.5); Mean Corpuscular Volume 91 fL (80-100); Mean Platelet Volume 11.2 fL (9.1-12.4); NEUTROPHILS ABSOLUTE AUTO 3.24 K/mm3 (1.96-9.15); NEUTROPHILS PERCENT AUTO 55 % (41-73); Platelet Count 327 K/mm3 (150-400); RDW Coefficient Variation 13.7 % (11.7-14.2); RDW Standard Deviation 45.8 fL (35.1-46.3); Red Blood Cell Count 3.95 M/mm3 (3.80-5.20); White Blood Cell Count 5.87 K/mm3 (4.00-11.30)
[2024-07-29 21:29] LABS: Percent Saturation 13.2 % (15.0-50.0); Thyroid Stimulating Hormone 4.94 uIU/mL (0.360-4.800)
[2024-07-29 21:34] LABS: Albumin, Blood 4.1 g/dL (3.4-5.0); Bilirubin, Total 0.3 mg/dL (0.1-1.0); Bun/Creatinine Ratio 20.2 (12.0-20.0); Calcium, Blood 9.2 mg/dL (8.5-10.1); Creatinine, Blood 1.04 mg/dL (0.40-1.00); Globulin, Blood 4.1 g/dL (2.2-4.0); Potassium, Blood 3.4 mmol/L (3.5-5.5); Total Protein, Blood 8.2 g/dL (6.4-8.2)
[2024-08-01 12:19] LABS: ALBUMIN 4.32 g/dL (3.75-5.01); ALPHA 1 GLOBULIN 0.32 g/dL (0.19-0.46); ALPHA 2 GLOBULIN 0.75 g/dL (0.48-1.05); BETA GLOBULIN 0.84 g/dL (0.48-1.10); GAMMA 1.27 g/dL (0.62-1.51); IMMUNOFIXATION IFE Done; IMMUNOGLOBULIN A 316 mg/dL (68-408); IMMUNOGLOBULIN G 1344 mg/dL (768-1632); IMMUNOGLOBULIN M 120 mg/dL (35-263); KAPPA QNT FREE LIGHT CHAINS 42.88 mg/L (3.30-19.40); KAPPA/LAMBDA FLC RATIO 1.41 (0.26-1.65); LAMBDA QNT FREE LIGHT CHAINS 30.35 mg/L (5.71-26.30); TOTAL PROTEIN, SERUM 7.5 g/dL (6.3-8.2)
== END ==
LOC: LAB SHORT 15:55 → LAB 15:55
PROVIDERS: Internal Medicine
DX: E03.9 Hypothyroidism, unspecified (principal); E53.8 Deficiency of other specified B group vitamins; E61.1 Iron deficiency; G62.9 Polyneuropathy, unspecified
CPT/HCPCS: 80053; 82607; 82728; 82746; 82784; 83521; 83540; 83550; 84155; 84165; 84443; 85025; 86334

== ENCOUNTER 2024-09-12 08:45 | Emergency (ER) | payer OTHER ==
[~2024-09-12] VITALS: Ht 157.5 cm; Wt 79.8 kg
[2024-09-12 08:50] VITALS: BP 134/79
[2024-09-12] MEDS ORDERED: Ketorolac Tromethamine 30mg Vial IM ONE (12:20)
[2024-09-12] MEDS ORDERED: Lidocaine 4% 1 Patch TOP ONE (12:20)
[2024-09-12] MEDS ORDERED: LIDO700A20 TOP (14:02)
[2024-09-12] MEDS ORDERED: Robaxin750 MG PO (14:04)
== END 2024-09-12 14:41 | disposition home or self-care (01) ==
LOC: ER 08:45
DX: S20.212A Contusion of left front wall of thorax, initial encounter (principal); J44.89 Other specified chronic obstructive pulmonary disease; I10 Essential (primary) hypertension; E11.9 Type 2 diabetes mellitus without complications; Y04.8XXA Assault by other bodily force, initial encounter; Z87.891 Personal history of nicotine dependence; Z79.899 Other long term (current) drug therapy; Z88.5 Allergy status to narcotic agent; Z88.6 Allergy status to analgesic agent; Z88.8 Allergy status to other drugs, medicaments and biological substances
CPT/HCPCS: 71110; 73030; 96372; 99284-25; A9270; J1885